=== PATIENT | female | born 1960 | race Caucasian/White ===

== ENCOUNTER 2017-02-24 06:57 | Emergency (ER) | payer OTHER ==
[2017-02-24 07:24] VITALS: BP 128/86; PULSE 96; TEMP 98.4; BMI 26.0
[2017-02-24] MEDS ORDERED: GENTAMICIN 0.3% OPHTHALMIC OINTMENT 3.5 GM/TUBE OS STA (07:38)
--- NOTE | 2017-02-24 07:38 | PDOC ---
History of Present Illness - General Chief Complaint: Eye Problem Stated Complaint: FOREIGN SUBSTANCE/LT EYE Time Seen by Provider: 02/24/17 07:22 History Source: Patient Exam Limitations: No Limitations - History of Present Illness Initial Comments: 02/24/17 07:39 56 yr female accidentlay placed super glue to her left eye instead of placing dry eye drops. Pt attempted to remove with vaseline. Past History - Past Medical History Allergies/Adverse Reactions: Allergies Allergy/AdvReac Type Severity Reaction Status Date / Time No Known Drug Allergies Allergy Verified 02/24/17 08:34 Home Medications: Ambulatory Orders Amitriptyline HCl [Elavil -] 10 mg PO HS 02/29/12 Biotin 5,000 mcg PO HS 02/29/12 Bupropion HCl [Wellbutrin Xl -] 150 mg PO DAILY 02/29/12 Calcium Carbonate [Calcium] 600 mg PO HS 02/29/12 Cholecalciferol (Vitamin D3) [Vitamin D3] 1,000 unit PO DAILY 02/29/12 Levothyroxine [Synthroid -] 25 mcg PO DAILY 02/29/12 Montelukast Na [Singulair -] 10 mg PO HS 02/29/12 Morphine *Sr* [MS Contin -] 30 mg PO TID 02/29/12 Omeprazole [Prilosec (RX)] 20 mg PO DAILY 02/29/12 Oxycodone HCl/Acetaminophen [Percocet 5-325 mg Tablet] 1 - 2 tab PO Q4H Simvastatin [Zocor -] 40 mg PO HS 02/29/12 Topiramate [Topamax -] 75 mg PO BID 02/29/12 Ondansetron Injection [Zofran Injection] 4 mg IVPUSH ONCE 12/28/12 Ms Contin 45 mg PO BID 08/09/13 Nortriptyline HCl 25 mg PO BID capsule 08/09/13 Oxycodone HCl/Acetaminophen [Percocet 10-325 Mg Tablet] 1 each PO BID tablet Oxycodone HCl/Acetaminophen [Percocet 5-325 Mg Tablet] 1 each PO BID tablet 06/19 morphine SO4 SUSTAINED ACTING [Ms Contin] 30 mg PO HS 08/09/13 Unobtainable 02/24/17 Anemia: No Asthma: Yes Cancer: No Cardiac Disorders: No CVA: No COPD: No CHF: No Dementia: No Diabetes: No GI Disorders: No Disorders: No HTN: No Hypercholesterolemia: No Liver Disease: No Psychiatric Problems: Yes (ANXIETY. DEPRESSION) Seizures: No Thyroid Disease: Yes - Surgical History Abdominal Surgery: No Appendectomy: No Cardiac Surgery: No Cholecystectomy: No Lung Surgery: No Neurologic Surgery: Yes (2 back surgery/instrumentation) Orthopedic Surgery: No - Suicide/Smoking/Psychosocial Hx Smoking History: Never smoked Hx Alcohol Use: No Drug/Substance Use Hx: No Substance Use Type: None *Physical Exam - Vital Signs Last Vital Signs Temp Pulse Resp BP Pulse Ox 98.4 F 96 H 20 128/86 98 02/24/17 07:14 02/24/17 07:14 02/24/17 07:14 02/24/17 07:14 02/24/17 07:14 - Physical Exam General Appearance: Yes: Nourished, Appropriately Dressed HEENT: positive: EOMI, ALLISON, TMs Normal, Pharynx Normal, Other (left eye lashes iwth superglue, pt is able to open her eyes the lashes are not stuck together ) Respiratory/Chest: positive: Lungs Clear, Normal Breath Sounds Cardiovascular: positive: Regular Rhythm, Regular Rate Extremity: positive: Normal Capillary Refill, Normal Inspection, Normal Range of Motion Integumentary: positive: Normal Color, Dry, Warm Neurologic: positive: Fully Oriented, Alert, Normal Mood/Affect, Normal Response , Motor Strength 5/5 Procedures - Eye Procedure Alcaine Drops Administered: Yes Antibiotic Oinment/Drps Admin: left eye Progress: 02/24/17 07:40 neg flurosecein uptake neg abrasion or fb on cornea warm moist compresses placed to the eyelid to remove as much glue as possible eye flushed with sodium bicarb solution pt feels relief with the tetracaine drops 02/24/17 07:47 02/24/17 08:42 gentamycin ointment placed and the eye has been patched for comfort Medical Decision Making - Medical Decision Making 02/24/17 07:48 call placed to industry operations investigator opthomology awaiting call back 02/24/17 08:42 pt understands the need to follow with the eye doctor today the opthomologist called back and will see pt in the office today. Pt has been given the information and will follow with the eye doctor today. 02/24/17 08:43 *DC/Admit/Observation/Transfer Diagnosis at time of Disposition: Foreign body of left eye Qualifiers: Encounter type: initial encounter Qualified Code(s): T15.92XA - Foreign body on external eye, part unspecified, left eye, initial encounter - Discharge Dispostion Disposition: HOME Condition at time of disposition: Good - Referrals Referrals: Miguel Lafleur MD [Staff Physician] - - Patient Instructions Printed Discharge Instructions: DI for Chemical Eye Burn Additional Instructions: please follow with the opthomologist at the number listed below call them at 9a m to set up appointment for today, tell them you were in the Emergency Room this morning use the eye ointment every 2hrs for 2 days while awake you can also wash the lids and flush the eye gently with warm water the glue will dislodge and peel off on its own to the lashes - Post Discharge Activity
[2017-02-24] MEDS ORDERED: GENTAMICIN SULFATE 0.3% OPHTHALMIC (EYE DROPS) 5ML BOTTLE ONE (07:57)
== END 2017-02-24 08:42 | disposition home or self-care (01) ==
LOC: JER 06:57
DX: T15.92XA Foreign body on external eye, part unspecified, left eye, initial encounter (principal)
CPT/HCPCS: 99282-25